=== PATIENT | female | born 1930 | race Caucasian/White ===

== ENCOUNTER 2017-04-17 21:32 | Inpatient (IN) | payer OTHER ==
[~2017-04-17] VITALS: Ht 167.6 cm; Wt 71.7 kg
[2017-04-17] MEDS ORDERED: QUET25TA PO (21:55)
[2017-04-17] MEDS ORDERED: EZET10TA27 PO (21:55)
[2017-04-17] MEDS ORDERED: APIX5TAB PO (21:55)
[2017-04-17] MEDS ORDERED: ATOR10TA PO (21:55)
[2017-04-17] MEDS ORDERED: FURO40TA5 PO (21:55)
[2017-04-17] MEDS ORDERED: AMLO5TAB2 PO (21:55)
[2017-04-17] MEDS ORDERED: FOLI1TAB16 PO (21:55)
[2017-04-17 22:14] LABS: BASOPHILS # (AUTO) 0.1 K/uL (0.0-8.0); BASOPHILS % (AUTO) 0.7 % (0.0-2.0); EOSINOPHILS # (AUTO) 0.2 K/uL (0.0-0.7); EOSINOPHILS % (AUTO) 2.6 % (0.0-7.0); HEMOGLOBIN 10.6 G/DL (12.0-16.0); LYMPHOCYTES # (AUTO) 2.1 K/UL (0.8-4.8); LYMPHOCYTES % (AUTO) 22.8 % (20.5-51.5); MEAN CORPUSCULAR HEMOGLOBIN 28.4 UUG (27.0-31.0); MEAN CORPUSCULAR HGB CONC 32 g/dL (32.0-37.0); MEAN CORPUSCULAR VOLUME 88.4 FL (81.0-99.0); MONOCYTES # (AUTO) 0.8 K/UL (0.1-1.30); MONOCYTES % (AUTO) 8.6 % (0.0-11.0); NEUTROPHILS # (AUTO) 5.9 K/UL (1.8-8.9); NEUTROPHILS % (AUTO) 65.3 % (38.5-71.5); PLATELET COUNT (AUTO) 213 K/UL (150-450); RED BLOOD CELL COUNT(AUTO) 3.74 MIL/UL (4.2-5.4); WHITE BLOOD COUNT (AUTO) 9.1 K/UL (4.0-11.2)
[2017-04-17 22:26] LABS: CARBON DIOXIDE 33 mmol/L (21-32); CHLORIDE 106 mmol/L (98-107); CREATININE 0.9 mg/dL (0.6-1.3); GLUCOSE 157 mg/dL (74-106); POTASSIUM 3.5 mmol/L (3.5-5.1); UREA NITROGEN, BLOOD 24 mg/dL (7-18)
[2017-04-17 22:33] LABS: ETHANOL < 3 MG/DL (0-0)
[2017-04-17 22:40] LABS: ALANINE AMINOTRANSFERASE 18 U/L (14-59); ALKALINE PHOSPHATASE 79 U/L (50-136); ASPARTATE AMINOTRANSFERASE 12 U/L (15-37); BILIRUBIN,DIRECT 0.1 mg/dL (0.0-0.2); BILIRUBIN,TOTAL 0.3 mg/dL (0.2-1.0); THYROID STIMULATING HORMONE 0.993 mIU/mL (0.358-3.740); TOTAL PROTEIN, SERUM 5.9 g/dL (6.4-8.2)
[2017-04-17 22:45] LABS: ACETAMINOPHEN < 2.0 ug/mL (10-30)
--- NOTE | 2017-04-17 22:55 | NUR ---
Call placed to [facility] for PET evaluation, ETA 60 min.
[2017-04-17 23:08] LABS: *BILIRUBIN,URIN NEGATIVE (NEGATIVE); *BLOOD, URINE NEGATIVE (NEGATIVE); *CLARITY,URINE CLEAR (CLEAR); *COLOR,URINE YELLOW (YELLOW); *KETONES,URINE 1+ (NEGATIVE); *PROTEIN,URINE NEGATIVE (NEGATIVE); *UROBILINOGEN,URINE 0.2 E.U./dl (NORMAL); LEUKOCYTE ESTERASE ,URINE NEGATIVE (NEGATIVE); NITRITE, URINE NEGATIVE (NEGATIVE); UGLUCOSE NEGATIVE (NEGATIVE)
[2017-04-17 23:35] LABS: *AMPHETAMINE, URINE NEGATIVE (NEGATIVE); *BARBITURATE, URINE NEGATIVE (NEGATIVE); *CANNABINOID, URINE NEGATIVE (NEGATIVE); *COCCAINE, URINE NEGATIVE (NEGATIVE); *OPIATE, URINE NEGATIVE (NEGATIVE); *PHENCYCLIDINE SCREEN,URINE NEGATIVE (NEGATIVE); BACTERIA,URINE FEW /HPF (NONE SEEN); RBC,URINE 0-3 /HPF (0-3); SQUAMOUS EPITHELIAL CELL,UR MODERATE /HPF (NONE SEEN); WBC,URINE 0-3 /HPF (0-3)
--- NOTE | 2017-04-17 23:35 | NUR ---
[facility] at bedside for PET evaluation.
--- NOTE | 2017-04-18 02:30 | NUR ---
Pt. admitted to [facility], under care of Dr. Noble Belongs List completed
[2017-04-18 03:50] VITALS: BP 114/43
[2017-04-18] MEDS ORDERED: MAG HYDROX/AL HYDROX/SIMETH 30 ML LIQUID UDC PO PRN (04:30)
[2017-04-18] MEDS ORDERED: MAGNESIUM HYDROXIDE 30 ML LIQUID UDC PO PRN (04:30)
[2017-04-18] MEDS: QUETIAPINE FUMARATE 25 MG TABLET PO SCH ×2 (15:13→20:00)
[2017-04-18 16:50] VITALS: BP 140/55
[2017-04-18] MEDS: APIXABAN 5 MG TABLET PO SCH (18:00)
[2017-04-18] MEDS ORDERED: OLANZAPINE 10 MG VIAL IM ONE (18:15)
--- NOTE | 2017-04-18 18:26 | NUR ---
PT EXTREMELY AGITATED, PACING ROOM, REFUSING CARE. ASKED FOR A HUG FROM [facility]S AND SWUNG AT [facility]. DID NOT HIT. DANGER TO OTHERS. ATIVAN WAS GIVEN TO PATIENT. PT CHEWED IT AND SPIT IT AT RN. DR DAN CALLED AND ZYPREXA IM WAS ORDERED. ADMINISTERED MED ORDERED. WILL MONITOR PATIENT CLOSELY, PT IN BED WITH 1:1 SITTER AT BEDSIDE
--- NOTE | 2017-04-18 19:40 | NUR ---
RECEIVED PATIENT AGITATED, WANTING TO LEAVE THE ROOM, AND WANDER, CONT ON 1;1 SITTER FOR SAFETY, REDIRECT THE PATIENT, ASSISTED WITH TOILETING, CONT TO MONITOR.
[2017-04-18] MEDS: ATORVASTATIN 10 MG TABLET PO SCH (20:01)
--- NOTE | 2017-04-19 05:37 | NUR ---
PATIENT SLEPT 6 HRS LAST NIGHT, ASSISTED WITH TOILETING, AND HAD BOWEL MOVEMENT, PATIENT HAS EPISODES OF AGITATION BUT SUBSIDED AND WENT TO SLEPT, CONT 1;1 SITTER CONT TO MONITOR.
[2017-04-19] MEDS: FOLIC ACID 1 MG TABLET PO SCH (10:02)
[2017-04-19] MEDS: FUROSEMIDE 40 MG TABLET PO SCH (10:03)
[2017-04-19] MEDS: QUETIAPINE FUMARATE 25 MG TABLET PO SCH ×3 (10:03→20:13)
[2017-04-19] MEDS: ACETAMINOPHEN 325 MG TABLET PO PRN ×2 (10:04→22:02)
[2017-04-19] MEDS: EZETIMIBE 10 MG TABLET PO SCH (10:04)
[2017-04-19 11:35] VITALS: BP 145/83
[2017-04-19] MEDS: APIXABAN 5 MG TABLET PO SCH ×2 (12:53→16:37)
--- NOTE | 2017-04-19 14:11 | NUR ---
UR Note: GEN left clinicals over voicemail for CM Anum at [facility] [[phone]]. Awaiting authorization.
[2017-04-19 15:50] VITALS: BP 134/60
--- NOTE | 2017-04-19 16:33 | NUR ---
TRANSFERRING PT. TO M[facility] ROOM 140A
--- NOTE | 2017-04-19 16:45 | NUR ---
Received from 2nd floor as overflow geropsych accompanied by sitter. AOx3, pleasant and cooperative. somewhat forgetful. Pt oriented to unit rules.expectations. No aggressive or combative behavior noted. comfort measures provided.
[2017-04-19] MEDS: ATORVASTATIN 10 MG TABLET PO SCH (20:13)
[2017-04-19 20:25] VITALS: BP 125/77
--- NOTE | 2017-04-19 21:35 | NUR ---
PATIENT RECEIVED PACING HALLWAY, IN AND OUT OF ACTIVITIES ROOM AND [address] WAY. PATIENT CONFUSED, DISORGANIZED, EASILY AGITATED, EASILY IRRITABLE REQUIRES FREQUENT REDIRECTION. POOR IMPULSE CONTROL, POOR JUDGEMENT. PATIENT COMPLAINT WITH MEDICATION. NO AGGRESSIVE OR COMBATIVE BEHAVIOR NOTED WILL CONTINUE TO MONITOR.
[2017-04-19] MEDS: LORAZEPAM 0.5 MG TABLET PO PRN (22:02)
[2017-04-20 07:30] VITALS: BP 105/53
[2017-04-20] MEDS: FOLIC ACID 1 MG TABLET PO SCH (09:14)
[2017-04-20] MEDS: EZETIMIBE 10 MG TABLET PO SCH (09:15)
[2017-04-20] MEDS: QUETIAPINE FUMARATE 25 MG TABLET PO SCH ×2 (09:15→18:06)
[2017-04-20] MEDS: FUROSEMIDE 40 MG TABLET PO SCH (09:15)
[2017-04-20] MEDS: LORAZEPAM 0.5 MG TABLET PO PRN (09:50)
[2017-04-20] MEDS: APIXABAN 5 MG TABLET PO SCH ×2 (10:10→18:06)
--- NOTE | 2017-04-20 12:17 | NUR ---
UR Note: GEN left clinicals over the phone with HAVEN Rowan at [facility] [[phone]]. AUTHORIZATION#[id number]. Next review due on 04/22.
[2017-04-20 15:36] VITALS: BP 102/65
[2017-04-20] MEDS ORDERED: LORAZEPAM 0.5 MG TABLET PO PRN (17:45)
[2017-04-20 19:50] VITALS: BP 137/66
[2017-04-20] MEDS: ATORVASTATIN 10 MG TABLET PO SCH (20:16)
[2017-04-20] MEDS ORDERED: QUETIAPINE FUMARATE 25 MG TABLET PO SCH (21:00)
[2017-04-20] MEDS: TEMAZEPAM 7.5 MG CAPSULE PO PRN (22:35)
[2017-04-21 07:30] VITALS: BP 110/47
[2017-04-21] MEDS: QUETIAPINE FUMARATE 25 MG TABLET PO SCH ×4 (08:35→20:21)
[2017-04-21] MEDS: APIXABAN 5 MG TABLET PO SCH ×2 (08:36→17:20)
[2017-04-21] MEDS: FOLIC ACID 1 MG TABLET PO SCH (08:36)
[2017-04-21] MEDS: EZETIMIBE 10 MG TABLET PO SCH (08:36)
[2017-04-21] MEDS: FUROSEMIDE 40 MG TABLET PO SCH (08:36)
--- NOTE | 2017-04-21 08:53 | NUR ---
Firearms Reporting: GEN submitted Mental Health Report to [employer] on 04/21.
--- NOTE | 2017-04-21 12:06 | NUR ---
Initial DC Plan: Patient currently resides at [facility] [[address] [place] [address]; ]. GEN spoke with Hollie at [facility] who stated patient can return to the facility when ready. GEN will follow up with MD, patient, and patient's granddaughter Brady [[phone]] to discuss most appropriate discharge plans. SW will form a safe and proper discharge.
[2017-04-21] MEDS: DIVALPROEX 125 MG TABLET.DR PO SCH ×2 (14:00→20:21)
[2017-04-21 16:00] VITALS: BP 148/70
[2017-04-21] MEDS: METFORMIN HCL 500 MG TABLET PO SCH (17:20)
[2017-04-21 20:13] VITALS: BP 131/63
[2017-04-21] MEDS: ATORVASTATIN 10 MG TABLET PO SCH (20:21)
[2017-04-21] MEDS: TEMAZEPAM 7.5 MG CAPSULE PO PRN (22:38)
[2017-04-22 07:24] LABS: CARBON DIOXIDE 35 mmol/L (21-32); CHLORIDE 104 mmol/L (98-107); CREATININE 0.8 mg/dL (0.6-1.3); GLUCOSE 139 mg/dL (74-106); POTASSIUM 4.1 mmol/L (3.5-5.1); UREA NITROGEN, BLOOD 16 mg/dL (7-18)
[2017-04-22 07:25] LABS: BASOPHILS # (AUTO) 0.1 K/uL (0.0-8.0); BASOPHILS % (AUTO) 0.7 % (0.0-2.0); EOSINOPHILS # (AUTO) 0.3 K/uL (0.0-0.7); EOSINOPHILS % (AUTO) 3.4 % (0.0-7.0); HEMATOCRIT 34.5 % (37-47); HEMOGLOBIN 11.4 G/DL (12.0-16.0); LYMPHOCYTES % (AUTO) 26.8 % (20.5-51.5); MEAN CORPUSCULAR HEMOGLOBIN 29.1 UUG (27.0-31.0); MEAN CORPUSCULAR HGB CONC 33 g/dL (32.0-37.0); MEAN CORPUSCULAR VOLUME 88.3 FL (81.0-99.0); MONOCYTES # (AUTO) 0.7 K/UL (0.1-1.30); MONOCYTES % (AUTO) 9.2 % (0.0-11.0); NEUTROPHILS # (AUTO) 4.4 K/UL (1.8-8.9); NEUTROPHILS % (AUTO) 59.9 % (38.5-71.5); PLATELET COUNT (AUTO) 221 K/UL (150-450); RED BLOOD CELL COUNT(AUTO) 3.91 MIL/UL (4.2-5.4); WHITE BLOOD COUNT (AUTO) 7.5 K/UL (4.0-11.2)
[2017-04-22 07:30] VITALS: BP 102/54
--- NOTE | 2017-04-22 08:41 | NUR ---
UR Note: GEN left clinicals over voicemail for CM Anum at [facility] [[phone]]. Awaiting authorization.
[2017-04-22] MEDS: APIXABAN 5 MG TABLET PO SCH ×2 (09:15→17:08)
[2017-04-22] MEDS: EZETIMIBE 10 MG TABLET PO SCH (09:15)
[2017-04-22] MEDS: QUETIAPINE FUMARATE 25 MG TABLET PO SCH ×4 (09:15→21:16)
[2017-04-22] MEDS: FOLIC ACID 1 MG TABLET PO SCH (09:15)
[2017-04-22] MEDS: FUROSEMIDE 40 MG TABLET PO SCH (09:16)
[2017-04-22] MEDS: DIVALPROEX 125 MG TABLET.DR PO SCH ×2 (09:19→21:15)
[2017-04-22] MEDS: METFORMIN HCL 500 MG TABLET PO SCH ×2 (09:21→17:08)
[2017-04-22 10:27] LABS: BAND % (MANUAL) 1 % (0-10); EOSINOPHILS % (MANUAL) 3 % (0-8); LYMPHOCYTES % (MANUAL) 27 % (20-40); MONOCYTES % (MANUAL) 10 % (2-10); NEUTROPHILS % (MANUAL) 59 % (42-75)
--- NOTE | 2017-04-22 15:40 | NUR ---
UR Note: SW received authorization from HAVEN Rowan at [facility] [[phone]]. Review due on 04/26.
[2017-04-22 15:58] VITALS: BP 140/75
[2017-04-22 21:12] VITALS: BP 134/67
[2017-04-22] MEDS: ATORVASTATIN 10 MG TABLET PO SCH (21:15)
[2017-04-22] MEDS: TEMAZEPAM 7.5 MG CAPSULE PO PRN (22:06)
--- NOTE | 2017-04-22 22:13 | NUR ---
PATIENT NOTED A/O X 1. CONFUSED AND PACING IN HER ROOM. TAKING AND PUTTING HER NIGHT GOWN ON AND OFF. NO AGITATION OR AGGRESSIVE BX NOTED AT THIS TIME. TEMAZEPAM 7.5MG PO PRN WAS GIVEN FOR INSOMNIA AT APPROX 2210. WILL CONTINUE TO MONITOR.
[2017-04-23 07:30] VITALS: BP 101/45
[2017-04-23] MEDS: METFORMIN HCL 500 MG TABLET PO SCH ×2 (08:44→17:18)
[2017-04-23] MEDS: EZETIMIBE 10 MG TABLET PO SCH (08:44)
[2017-04-23] MEDS: FOLIC ACID 1 MG TABLET PO SCH (08:44)
[2017-04-23] MEDS: QUETIAPINE FUMARATE 25 MG TABLET PO SCH ×4 (08:44→20:05)
[2017-04-23] MEDS: FUROSEMIDE 40 MG TABLET PO SCH (08:44)
[2017-04-23] MEDS: APIXABAN 5 MG TABLET PO SCH ×2 (08:46→16:20)
[2017-04-23] MEDS: DIVALPROEX 125 MG TABLET.DR PO SCH ×2 (08:46→20:04)
[2017-04-23 15:00] VITALS: BP 129/42
[2017-04-23] MEDS: ATORVASTATIN 10 MG TABLET PO SCH (20:04)
--- NOTE | 2017-04-23 20:20 | NUR ---
RECEIVED PATIENT IN THE DAY ROOM. SHE IS A/O X1. SHE WAS NOTED CONFUSED, DELUSIONAL. VISUAL HALLUCINATIONS (PT STATED THAT SHE SAW PEOPLE BEING "BLOWN OUT"). SHE WAS REDIRECTED TO REALITY. SHE IS PACING THE HALLWAY. SHE IS ABLE TO WALK WITH STEADY GAIT AND MAKE HER NEEDS KNOW. NO AGGRESSIVE BX WAS SEEN AT THIS TIME. PATIENT IS COMPLIANT WITH MEDICATION REGIMENT AND PLAN OF CARE. WILL CONTINUE TO MONITOR.
[2017-04-23 20:42] VITALS: BP 126/55
--- NOTE | 2017-04-23 22:24 | NUR ---
PATIENT NOTED ANXIOUS, PACING THE HALLWAY, GOING INTO OTHER PATIENT'S ROOM. ATIVAN 1MG PO PRN WAS GIVEN. WILL CONTINUE TO MONITOR
--- NOTE | 2017-04-24 06:42 | NUR ---
PATIENT SLEPT FOR APPROX 4HRS THROUGH THE NIGHT. LAST NIGHT, SHE WONDERED INTO ANOTHER PATIENT'S ROOM X1. SHE WAS REDIRECTED BACK TO HER BED.
[2017-04-24 07:30] VITALS: BP 106/48
[2017-04-24] MEDS: METFORMIN HCL 500 MG TABLET PO SCH ×2 (08:23→17:00)
[2017-04-24] MEDS: FOLIC ACID 1 MG TABLET PO SCH (08:23)
[2017-04-24] MEDS: DIVALPROEX 125 MG TABLET.DR PO SCH ×2 (08:23→20:06)
[2017-04-24] MEDS: FUROSEMIDE 40 MG TABLET PO SCH (08:23)
[2017-04-24] MEDS: EZETIMIBE 10 MG TABLET PO SCH (08:23)
[2017-04-24] MEDS: QUETIAPINE FUMARATE 25 MG TABLET PO SCH ×4 (08:23→20:06)
[2017-04-24] MEDS: APIXABAN 5 MG TABLET PO SCH ×2 (08:25→17:06)
[2017-04-24 15:00] VITALS: BP 120/69
[2017-04-24] MEDS: ACETAMINOPHEN 325 MG TABLET PO PRN (16:56)
[2017-04-24] MEDS: ATORVASTATIN 10 MG TABLET PO SCH (20:06)
[2017-04-24 20:10] VITALS: BP 138/64
[2017-04-24] MEDS: TEMAZEPAM 7.5 MG CAPSULE PO PRN (23:04)
--- NOTE | 2017-04-25 06:23 | NUR ---
PATIENT WAS GIVEN TEMAZEPAM 7.5MG PO PRN FOR INSOMNIA, SHE SLEPT APPROX 7 HRS THROUGH THE NIGHT.
[2017-04-25 07:30] VITALS: BP 106/52
[2017-04-25] MEDS: EZETIMIBE 10 MG TABLET PO SCH (09:24)
[2017-04-25] MEDS: METFORMIN HCL 500 MG TABLET PO SCH ×2 (09:24→17:20)
[2017-04-25] MEDS: DIVALPROEX 125 MG TABLET.DR PO SCH ×2 (09:24→20:13)
[2017-04-25] MEDS: FUROSEMIDE 40 MG TABLET PO SCH (09:24)
[2017-04-25] MEDS: QUETIAPINE FUMARATE 25 MG TABLET PO SCH ×4 (09:25→20:14)
[2017-04-25] MEDS: FOLIC ACID 1 MG TABLET PO SCH (09:28)
[2017-04-25] MEDS: APIXABAN 5 MG TABLET PO SCH ×2 (09:28→17:20)
[2017-04-25 16:40] VITALS: BP 149/52
[2017-04-25 20:00] VITALS: BP 135/62
[2017-04-25] MEDS: ATORVASTATIN 10 MG TABLET PO SCH (20:13)
[2017-04-26 07:30] VITALS: BP 140/61
--- NOTE | 2017-04-26 08:12 | NUR ---
DC Note: Patient will be discharged to [facility] [[address] [place] [place] [address]; ] via ambulance at 10:30am. GEN spoke with Hollie at [facility] who confirmed discharge plans. GEN spoke with patient's granddaughter Brady [[phone]] and cousin Linette [[phone]] who are aware and agreeable to discharge plans. Patient will follow up with Dr. Shawanda Ya ([employer] [facility]). Patient was provided referrals approved by her insurance for psychiatrists including: Dr. Valdes [ ], Dr. Henriquez [ ], and Dr. Cohn [ ].
[2017-04-26] MEDS: APIXABAN 5 MG TABLET PO SCH (09:17)
[2017-04-26] MEDS: METFORMIN HCL 500 MG TABLET PO SCH (09:17)
[2017-04-26] MEDS: FUROSEMIDE 40 MG TABLET PO SCH (09:17)
[2017-04-26] MEDS: DIVALPROEX 125 MG TABLET.DR PO SCH (09:17)
[2017-04-26] MEDS: FOLIC ACID 1 MG TABLET PO SCH (09:17)
[2017-04-26] MEDS: EZETIMIBE 10 MG TABLET PO SCH (09:18)
[2017-04-26] MEDS: QUETIAPINE FUMARATE 25 MG TABLET PO SCH (09:18)
--- NOTE | 2017-04-26 09:18 | NUR ---
Obtained medical prescriptions for pt. Called [facility] [place] [facility], [facility], to call in prescriptions for Psychiatric medications. Called them at [phone] and spoke to Kathie Chambers.
--- NOTE | 2017-04-26 11:02 | NUR ---
UR Note: GEN left discharge clinicals over voicemail for CM Anum at [facility] [[phone]].
--- NOTE | 2017-04-26 12:03 | NUR ---
Patient will be discharged to [facility] in stable comdition
== END 2017-04-26 12:16 | DRG 885 ==
LOC: ER 21:35 → GPSOV 04-18 02:15 → GPS 04-19 17:21
PROVIDERS: ADMIT Psychiatry & Neurology Psychosomatic Medicine; ATTEND Internal Medicine
DX: F23 Brief psychotic disorder (principal); E43 Unspecified severe protein-calorie malnutrition; I11.0 Hypertensive heart disease with heart failure; N17.0 Acute kidney failure with tubular necrosis; E11.65 Type 2 diabetes mellitus with hyperglycemia; I50.9 Heart failure, unspecified; I48.0 Paroxysmal atrial fibrillation; D63.8 Anemia in other chronic diseases classified elsewhere; F25.9 Schizoaffective disorder, unspecified; F03.90 Unspecified dementia, unspecified severity, without behavioral disturbance, psychotic disturbance, mood disturbance, and anxiety; J44.9 Chronic obstructive pulmonary disease, unspecified; E78.5 Hyperlipidemia, unspecified; Z86.718 Personal history of other venous thrombosis and embolism; Z79.01 Long term (current) use of anticoagulants; Z86.711 Personal history of pulmonary embolism; Z79.899 Other long term (current) drug therapy; Z68.25 Body mass index [BMI] 25.0-25.9, adult; F41.9 Anxiety disorder, unspecified; I70.0 Atherosclerosis of aorta
CPT/HCPCS: 36415; 71010; 73610; 73630; 80307; 84443; 85025; 85730; 93005; A4663; G0480; G0480-TC; J2358